=== PATIENT | female | born 1955 | race Caucasian/White ===

== ENCOUNTER 2016-06-04 18:26 | Emergency (ER) | payer BC ==
[2016-06-04 18:31] VITALS: BP 161/68; PULSE 92; RESP 18; TEMP 96.9
--- NOTE | 2016-06-04 18:45 | ED ---
Recheck HPI - General Chief Complaint: Recheck/Abnormal Lab/Rx Stated Complaint: ETOH Time Seen by Provider: 06/04/16 18:30 Source: patient, EMS, RN notes reviewed Mode of arrival: EMS Limitations: no limitations - History of Present Illness Initial Comments: 60 yo female presents to the ER with no complaints. Patient was brought here by EMS due to the fact that she was having chest pain while walking her dog and EMS was called. She states that she is 2 large dogs it may cause her to trouble walking. Patient denies any alcohol or drug use. Patient denies any suicidal homicidal ideation. Patient states that she has no complaints. Patient states that she would just like to leave. Patient denies any recent fever, chills, shortness of breath, chest pain, back pain, abdominal pain, nausea vomiting, numbness or tingling, dysuria or hematuria, constipation or diarrhea, headaches or visual changes, or any other current symptoms. Review of Systems ROS Statement: Those systems with pertinent positive or pertinent negative responses have been documented in the HPI. ROS Other: All systems not noted in ROS Statement are negative. Past Medical History Past Medical History: No Reported History History of Any Multi-Drug Resistant Organisms: None Reported Past Surgical History: No Surgical Hx Reported Past Psychological History: No Psychological Hx Reported Smoking Status: Never smoker Past Alcohol Use History: None Reported Past Drug Use History: None Reported General Exam Limitations: no limitations General appearance: alert, in no apparent distress Head exam: Present: atraumatic, normocephalic, normal inspection ENT exam: Present: normal exam, mucous membranes moist Neck exam: Present: normal inspection. Absent: tenderness, meningismus, lymphadenopathy Respiratory exam: Present: normal lung sounds bilaterally. Absent: respiratory distress, wheezes, rales, rhonchi, stridor Cardiovascular Exam: Present: regular rate, normal rhythm, normal heart sounds. Absent: systolic murmur, diastolic murmur, rubs, gallop, clicks Neurological exam: Present: alert, oriented X3, CN II-XII intact. Absent: motor sensory deficit Psychiatric exam: Present: normal affect, normal mood Skin exam: Present: warm, dry, intact, normal color. Absent: rash Course Vital Signs 06/04/16 18:28 Temperature 96.9 F L Pulse Rate 92 Respiratory 18 Rate Blood Pressure 161/68 O2 Sat by Pulse 98 Oximetry Medical Decision Making - Medical Decision Making 60-year-old female presents for evaluation. Patient wants to leave at this time she does not want to be evaluated. Patient is alert and oriented 3. Patient can walk in a straight line without any tripping or falling. At this time we did discuss leaving AMA we do not know why she was falling she states due to her dogs. that she wants to leave. The patient states that she is having no other complaints. This time she will be leaving AMA due to we do not know why she was falling patient states is nonicteric. We discussed it could be possible multiple reasons and we do not know exactly why he would like to further work her up and he states she would like to leave. This time patient will remain AMA. Disposition Clinical Impression: Fall Disposition: Left Against Medical Advice
== END 2016-06-04 18:55 | disposition left against medical advice (07) ==
LOC: EC 18:26
DX: R07.9 Chest pain, unspecified (principal); W19.XXXA Unspecified fall, initial encounter; Y92.89 Other specified places as the place of occurrence of the external cause
CPT/HCPCS: 99284

== ENCOUNTER → 2020-02-08 | Outpatient (CLI) | payer OTHER ==
--- NOTE | 2020-02-08 14:14 | XR ---
EXAMINATION TYPE: XR forearm RT DATE OF EXAM: 02/08/2020 COMPARISON: NONE HISTORY: Pain Two views of the forearm demonstrate that the osseous structures appear to be intact and the joint sp aces appear to be preserved. There is no acute fracture or dislocation. IMPRESSION: 1. No acute fracture or dislocation
== END | disposition home or self-care (01) ==
LOC: RADXRMAIN 13:43
PROVIDERS: ATTEND Emergency Medicine
DX: S56.211A Strain of other flexor muscle, fascia and tendon at forearm level, right arm, initial encounter (principal); M65.331 Trigger finger, right middle finger